=== PATIENT | female | born 1935 | race Caucasian/White ===

== ENCOUNTER 2016-08-10 08:41 | Inpatient (IN) | payer MEDICARE, OTHER ==
--- NOTE | 2016-09-13 11:24 | HP ---
DATE OF CLINIC: 09/02/2016 MARVEL DOSHI : 1935 PLANNED PROCEDURE: Left Total Knee Arthroplasty DATE OF SURGERY: September 14, 2016 SURGEON: Juan Ramon Chapman M.D. HISTORY OF PRESENT ILLNESS Marvel Doshi is an 81 year old female. * Medication list reviewed with patient allergy list reviewed with patient. * Tried Injections 08/2015-series of 6 injections 1 once a week. 01/2016 either a pure Lidocaine injection or a mixture with steroid * Has not tried NSAIDS Patient has been referred to our office for further evaluation of left knee pain and history of arthritis. She has recently relocated from [place] to [place]. She has been diagnosed previously with left knee arthritis and has received a 5 shot series of knee injection, which sounds like visco supplementation with little benefit. She also has had a previous left knee steroid injection which provided 2 months pain relief. She reports no previous knee injury. Her PCP is Dr. Shrestha. Patient denies having a casing flusher, but does have history of hypertension. After discussion and review of treatment options, including operative and non-operative, she has elected to proceed with left TKA and presents today preoperatively. CURRENT MEDICATION * Herrera Low Dose 81 MG Tablet Delayed Release 1 once a day 0 days, 0 refills * Blood Pressure Monitor Miscellaneous 1 once a day, 99 days, 0 refills * [facility] Ibuprofen 200 MG Tablet as needed PRN, 0 days, 0 refills * [facility] Omeprazole 20 MG Tablet Delayed Release 1 once a day 0 days, 0 refills * HydroCHLOROthiazide 25 MG Tablet 1 once a day, 30 days, 3 refills * Zostavax 25316 UNT/0.65ML Solution Reconstituted per pharmacy protocol, 30 days, 0 refills PAST MEDICAL/SURGICAL HISTORY Reported: No recent change in medical history. Medical: Bladder disease and Hypertension. Surgical / Procedural: Prior surgery Right eye Cataract 11/2015. Surgical: * Hysterectomy 1966 SOCIAL HISTORY Social history unchanged. Behavioral: Never smoked. Smoking status: Never smoker. Home Environment: Lives alone. Work: Occupation N/A. ALLERGIES * Codeine Derivatives Reaction: Nausea/Vomiting/Diarrhea * Macrodantin Reaction: Skin Rashes/Hives * Prevacid Reaction: Nausea/Vomiting/Diarrhea * Sulfa Drugs Reaction: Skin Rashes/Hives * TraMADol HCl Reaction: Nausea/Vomiting/Diarrhea FAMILY HISTORY 4 children living Family medical history Mother: Heart Disease, Stroke, Mother, HBP Father: Kidney Disease REVIEW OF SYSTEMS No recent constitutional symptoms to include fevers and chills. No cardiovascular symptoms to include chest pain or palpitations. No respiratory symptoms to include shortness of breath or recent infections. PHYSICAL FINDINGS * Vitals taken 09/02/2016 02:32 pm BP-Sitting L 121/70 mmHg BP Cuff Size Regular Pulse Rate-Sitting 74 bpm Temp-Oral 97.5 F Height 68 in Weight 217 lbs Body Mass Index 33.0 kg/m2 Body Surface Area 2.12 m2 Pain Level 4 Ears, Nose, Throat: * ENT: normal. Lungs: * Clear to auscultation. Cardiovascular: Heart Rate and Rhythm: * Normal. Abdomen: * Normal. Neurological: Motor: * Dominant Hand = Left Hand. Patient is alert and oriented and in no acute distress, ambulates in on her own without a knee brace or walking aid accompanied by her daughter. Left knee exam: Gross exam of bilateral knees shows signs of a valgus knee deformity. Patient has medial and lateral left knee joint tenderness, NT around the patellofemoral joint. Knee feels stable despite valgus deformity. Quadriceps and hamstring strength is 5/5, ankle dorsiflexion and plantarflexion strength is 5/5, hip strength is 5/5. Knee ROM is 0-120 degrees. No bruising, swelling or deformity. No erythema, increased warmth or sign of infection. TESTS * Test: URINALYSIS WITH MICROSCOPIC Report Date: 09/03/2016 EPITHELIAL CELL 1-2 WBC 10-15 GLUCOSE NEGATIVE BACTERIA 3+ PH,URINE 6.0 SPEC. GRAVITY 1.020 KETONE NEGATIVE NITRITE NEGATIVE RBC 0 BLOOD NEGATIVE BILIRUBIN NEGATIVE APPEARANCE CLOUDY PROTEIN NEGATIVE COLOR YELLOW LEUK ESTERASE TRACE UROBILINOGEN NORMAL * Test: URINE CULTURE Report Date: 09/04/2016 URINE CULTURE >100,000 CFU/ML MIXED AMOL, 3 OR MORE COLONY TYPES, * Test: CBC NO DIFF Report Date: 09/02/2016 WBC 5.5 10*3/mL MCV 96.2 fL RBC 4.47 10*6/uL MCH 31.5 pg High MCHC 32.8 g/dL Low RDW 14.3 % PLATELET COUNT 196 10*3/mL HCT 43.0 % HGB 14.1 g/L * Test: PROTHROMBIN TIME Report Date: 09/02/2016 PROTIME 9.4 s INR 0.90 * Test: PARTIAL THROMBOPLASTIN TIME Report Date: 09/02/2016 APTT 25.0 s * Test: COMPREHENSIVE METABOLIC PANEL Report Date: 09/02/2016 ALT/SGPT 6 U/L Low ALBUMIN 3.6 g/dL ALB/GLOB RATIO 1.4 BUN 21 mg/dL BUN/CREAT RATIO 19 CALCIUM 10.1 mg/dL GLUCOSE 98 mg/dL CREATININE 1.1 mg/dL SODIUM 140 meq/L POTASSIUM 3.7 meq/L CHLORIDE 99 meq/L CARBON DIOXIDE 35 meq/L High ANION GAP 10 meq/L TOT PROTEIN 6.2 g/dL Low GLOBULIN 2.6 g/dL BILI,TOTAL 0.3 mg/dL AST/SGOT 12 U/L Low ALK PHOSPHATASE 61 U/L GFR 47 Low * Test: URINALYSIS WITH MICROSCOPIC Report Date: 09/03/2016 EPITHELIAL CELL 1-2 WBC 10-15 GLUCOSE NEGATIVE BACTERIA 3+ PH,URINE 6.0 SPEC. GRAVITY 1.020 KETONE NEGATIVE NITRITE NEGATIVE RBC 0 BLOOD NEGATIVE BILIRUBIN NEGATIVE APPEARANCE CLOUDY PROTEIN NEGATIVE COLOR YELLOW LEUK ESTERASE TRACE UROBILINOGEN NORMAL * Test: MRSA SCREEN Report Date: 09/03/2016 MRSA SCREEN NEGATIVE * Test: MSSA SCREEN Report Date: 09/03/2016 MSSA SCREEN NEGATIVE FOR STAPHYLOCOCCUS AUREUS IMAGING Left knee x-rays from 05/03/16 show signs of lateral compartment [id number] contact with medial and lateral and patellofemoral arthritic changes, severe in nature. No sign of fracture or dislocation. Please see radiologic report for further details. ASSESSMENT * Localized primary osteoarthritis of the left knee Left knee osteoarthritis, severe, affecting primarily lateral compartment. THERAPY * Patient fall risk screen negative. * Patient eligible for fall risk assessment. * Patient received fall risk assessment. PLAN * Unilateral primary osteoarthritis, left knee Physical Therapy: PT Alisha Artis Instructions: Post-op Rehab Left TKA SX:09/14/06 needs to start wk of 09/19/16TBS [facility] [place] - if pt doesn't go to SNF OxyCONTIN 10 MG T12A, Take 1 tab by mouth every 12 hours for baseline pain control, 10 days, 0 refills OxyCODONE HCl 5 MG TABS, Take 1-2 tabs by mouth every 4 hours as needed for breakthrough pain, 14 days, 0 refills * Total knee arthroplasty -Left CARE TEAM Maru Shrestha MD Internal Medicine SURGICAL CONSENT We have discussed surgical options including left TKA and non-operative management. The patient was counseled in detail regarding the diagnosis, treatment options available, prognosis of each treatment option and the potential risks and complications. The risks of surgery include, but are not limited to, anesthetic , neurovascular complications, pulmonary embolism, deep vein thrombosis, wound dehiscence, failure of any or all of the discussed procedures, infection of the joint or surrounding soft tissue, need for revision surgery, chronic pain, limitations in activities of daily living, inability to return to work, and loss of normal range of motion or functional use of the extremity. There is the possibility of failure over time that may require additional operative or non-operative treatment. The patient acknowledged that there are a number of perioperative risks not mentioned here and would still like to proceed. The patient is aware of and understands these risks, and wishes to proceed with the proposed surgical procedure and other procedures as indicated at the time of surgery. We will have the patient see their PCP for a preoperative medical risk assessment. The preoperative instructions were reviewed with the patient and all questions were answered. PB/sg
[2016-09-14] MEDS ORDERED: FENTANYL 100 MCG/2 ML VIAL ONE (11:15)
[2016-09-14] MEDS ORDERED: PROPOFOL 20 ML IV ONE ×2 (11:15→15:02)
[2016-09-14] MEDS ORDERED: MIDAZOLAM HCL 5 MG/5 ML VIAL ONE (11:15)
[2016-09-14] MEDS ORDERED: FAMOTIDINE 20 MG TABLET PO ONE (11:45)
[2016-09-14] MEDS ORDERED: GABAPENTIN 600 MG TABLET PO ONE (11:45)
[2016-09-14] MEDS ORDERED: POLYMYXIN B SULFATE 500,000 UNITS, BACITRACIN 25,000 UNITS in SODIUM CHLORIDE 3 L IRRIG... IR PRN (11:45)
[2016-09-14] MEDS ORDERED: ONDANSETRON 4 MG/2ML 2 ML VIAL IV ONE (11:45)
[2016-09-14] MEDS ORDERED: BUPIVACAINE 0.25% (MDV) 24 ML, MORPHINE SULFATE 8 MG, EPINEPHRINE 0.3 MG in SODIUM CHLO... IF PRN (11:45)
[2016-09-14] MEDS ORDERED: CEFAZOLIN SODIUM 2 GRAM PREMIX 100 ML IV PRN (11:45)
[2016-09-14] MEDS ORDERED: TRANEXAMIC ACID 1,000 MG in SODIUM CHLORIDE 0.9% 100 ML IV PRN (11:45)
[2016-09-14] MEDS ORDERED: OXYCODONE HCL 10 MG TAB.SR PO ONE ×2 (11:45→12:44)
[2016-09-14] MEDS ORDERED: BUPIVACAINE 0.25% (MDV) 20 ML in SODIUM CHLORIDE 0.9% FLUSH 20 ML IF PRN (11:45)
[2016-09-14] MEDS ORDERED: CLONIDINE HCL 0.1 MG/24 HR (7 DAY PATCH) TD SCH (11:45)
[2016-09-14] MEDS ORDERED: CELECOXIB 200 MG CAPSULE PO ONE (11:45)
[2016-09-14] MEDS ORDERED: LACTATED RINGERS 1,000 ML ONE (11:59)
[2016-09-14] MEDS ORDERED: IV START KIT ONE (12:00)
[2016-09-14] MEDS ORDERED: CEFAZOLIN SODIUM 2 GRAM PREMIX 100 ML IV ONE (12:01)
[2016-09-14] MEDS ORDERED: FAMOTIDINE 20 MG TABLET ONE ×2 (12:43→13:00)
[2016-09-14] MEDS ORDERED: CLONIDINE HCL 0.1 MG/24 HR (7 DAY PATCH) TD ONE (12:43)
[2016-09-14] MEDS ORDERED: GABAPENTIN 600 MG TABLET ONE (12:43)
[2016-09-14] MEDS ORDERED: ONDANSETRON 4 MG/2ML 2 ML VIAL ONE (12:43)
[2016-09-14] MEDS ORDERED: CELECOXIB 200 MG CAPSULE ONE (12:44)
[2016-09-14] MEDS ORDERED: BUPIVACAINE 0.75% SPINAL AMPUL 2 ML ONE (12:52)
[2016-09-14] MEDS ORDERED: ROPIVACAINE 0.5% 30 ML VIAL ONE (12:52)
[2016-09-14] MEDS ORDERED: NERVE BLOCK PROCEDURAL TRAY 1 EACH ONE (12:52)
[2016-09-14] MEDS ORDERED: SPINAL PROCEDURAL TRAY 1 EACH ONE (12:52)
[2016-09-14] MEDS ORDERED: ON-Q PUMP/ROPIVACAINE 0.2% 450 ML ONE ×2 (14:28→16:26)
[2016-09-14] MEDS ORDERED: PROMETHAZINE HCL 25 MG/ML VIAL IM PRN (14:34)
[2016-09-14] MEDS ORDERED: HYDROMORPHONE HCL 1 MG/ML SYRINGE IV PRN (14:34)
[2016-09-14] MEDS ORDERED: ONDANSETRON 4 MG/2ML 2 ML VIAL IV PRN (14:34)
[2016-09-14] MEDS ORDERED: ON-Q PUMP/ROPIVACAINE 0.2% 450 ML in PREMIX BAG 1 EACH NB PRN (14:34)
[2016-09-14] MEDS ORDERED: FENTANYL 100 MCG/2 ML VIAL IV PRN (14:34)
[2016-09-14] MEDS ORDERED: LACTATED RINGERS 1,000 ML IV SCH (14:45)
--- NOTE | 2016-09-14 16:17 | PCMBPN ---
Brief Post Op Note: Date of Procedure: 09/14/16 Start Time: 1430 Preoperative Diagnosis: 1. left knee osteoarthritis Postoperative Diagnosis: 1. Same Procedure: left total knee arthroplasty Surgeon: Juan Ramon Chapman MD Assist: Manuel Lombardo PA-C Anesthesia: Henny Pike Findings: as above Condition: stable to PACU Complications: none IV Fluids: 1500 mLs of LR Urine Output: 150 mLs Estimated Blood Loss: 150 mLs Tourniquet Time: 22 min at 250 mm Hg Specimens: N/A Implants: Depuy Attune 7PS femur, 6RP tibia, 5mm insert, 35 mm anatomic patella Drains: none Juan Ramon Chapman MD
[2016-09-14] MEDS ORDERED: CALCIUM CARBONATE 500 MG TAB.CHEW PO PRN (17:19)
[2016-09-14] MEDS ORDERED: TRAZODONE HCL 50 MG TABLET PO PRN (17:19)
--- NOTE | 2016-09-14 17:32 | RAD ---
LEFT KNEE 2 VIEWS HISTORY: Status post total knee arthroplasty. Frontal and lateral radiographs of the left knee. COMPARISON: 05/03/2016 FINDINGS: POSTPROCEDURAL CHANGE: Status post left total knee arthroplasty. ALIGNMENT: Grossly anatomic. Correction of prior valgus angulation. FRACTURE: None identified. ADDITIONAL POSTPROCEDURAL FINDINGS: Soft tissue gas, surgical matthias, and overlying brace noted. IMPRESSION: Grossly unremarkable immediate post arthroplasty appearance of the left knee.
[2016-09-14 18:00] VITALS: BMI 31.9
[2016-09-14] MEDS ORDERED: PUMP TUBING ONE (18:52)
[2016-09-14] MEDS: ONDANSETRON 4 MG/2ML 2 ML VIAL IV PRN (18:58)
[2016-09-14] MEDS: D5 1/2NS with 20 mEq KCL 1,000 ML IV SCH (18:59)
[2016-09-14] MEDS: HYDROMORPHONE HCL 0.5 MG/0.5 ML SYRINGE IV PRN (19:37)
[2016-09-14] MEDS: ACETAMINOPHEN 500 MG TABLET PO SCH ×2 (20:12→23:17)
[2016-09-14] MEDS: ASCORBIC ACID 500 MG TABLET PO SCH (20:23)
[2016-09-14] MEDS: KETOROLAC TROMETHAMINE 30 MG/ML 1 ML VIAL IV PRN (20:23)
[2016-09-14] MEDS: DOCUSATE SODIUM 100 MG CAPSULE PO SCH (20:24)
[2016-09-14] MEDS: OXYCODONE HCL 10 MG TAB.SR PO SCH (20:24)
[2016-09-14] MEDS: HYDROCHLOROTHIAZIDE 25 MG TABLET PO SCH (21:45)
[2016-09-14] MEDS: CEFAZOLIN SODIUM 2 GRAM DUPLEX 2 G in Premix (D5W) 50 ml 1 EACH IV SCH (23:17)
[2016-09-15] MEDS: ONDANSETRON 4 MG/2ML 2 ML VIAL IV PRN ×3 (00:07→20:52)
[2016-09-15] MEDS: D5 1/2NS with 20 mEq KCL 1,000 ML IV SCH ×4 (03:09→18:28)
[2016-09-15 05:53] LABS: HEMATOCRIT 36.2 % (37.0-47.0); HEMOGLOBIN 11.7 gm/l (12.0-16.0); MEAN CELL VOLUME 98.4 fl (81.0-99.0); MEAN CORPUSCULAR HEMOGLOBIN 31.8 pg (27.0-31.0); MEAN CORPUSCULAR HGB CONC 32.3 g/dl (33.0-37.0); RED CELL DISTRIBUTION WIDTH 14.3 % (11.5-14.5)
[2016-09-15] MEDS: OXYCODONE HCL 5 MG TABLET PO PRN ×4 (06:15→22:05)
[2016-09-15] MEDS: CEFAZOLIN SODIUM 2 GRAM DUPLEX 2 G in Premix (D5W) 50 ml 1 EACH IV SCH (06:15)
[2016-09-15] MEDS: ACETAMINOPHEN 500 MG TABLET PO SCH ×4 (06:15→22:05)
[2016-09-15 06:16] LABS: CALCIUM 8.7 mg/dL (8.6-10.3)
--- NOTE | 2016-09-15 08:16 | PDOC43 ---
- Subjective Subjective: Reports Pain Tolerable, Denies Chest Pain, Denies Shortness of Breath - Objective Vital Signs Temperature 98.7 F 09/15/16 07:35 Pulse Rate 71 09/15/16 07:35 Respiratory Rate 16 09/15/16 07:35 Blood Pressure 111/42 09/15/16 07:35 O2 Saturation by Pulse Oximetry 99 09/15/16 07:35 Oxygen Delivery Method Room Air Oxygen Flow Rate 0 Laboratory 09/15/16 05:30 09/15/16 05:30 09/15/16 05:30 RBC 3.68 L MCH 31.8 H MCHC 32.3 L Estimated GFR 80 H Active Medication Orders Category Date Time Status Acetaminophen [Tylenol] Med 09/14/16 17:19 Active 1,000 mg PO Q6H Ascorbic Acid [Vitamin C] Med 09/14/16 21:00 Active 500 mg PO BID Aspirin (Enteric Coated) [Ecotrin] Med 09/15/16 09:00 Active 325 mg PO DAILY Bisacodyl [Dulcolax] Med 09/17/16 16:10 Active 10 mg [place] DAILY PRN Calcium Carbonate [Tums] Med 09/14/16 17:19 Active 1,000 - 2,000 mg PO Q2H PRN D5 1/2NS with 20 mEq KCL [D51/2NS with 20 mEq KCL] 1, Med 09/14/16 17:19 Active 000 ml IV 125 mls/hr Docusate Sodium [Colace] Med 09/14/16 21:00 Active 100 mg PO BID Hydrochlorothiazide Med 09/14/16 18:30 Active 25 mg PO DAILY Hydromorphone HCl [Dilaudid] Med 09/14/16 17:19 Active 0.5 mg IV Q1H PRN Hydroxyzine Pamoate [Vistaril] Med 09/14/16 17:19 Active 25 - 50 mg PO Q4H PRN Ketorolac Tromethamine [Toradol] Med 09/14/16 17:19 Active 15 mg IV Q6H PRN Magnesium Hydroxide [Milk of Magnesia] Med 09/15/16 16:10 Active 30 ml PO DAILY PRN Multivitamins [One-A-Day] Med 09/15/16 09:00 Active 1 tab PO DAILY On-Q Pump/Ropivacaine 0.2% 450 ml Med 09/14/16 14:34 Active Premix Bag [Premix Fluid] 1 each NB Q50H Ondansetron 4 mg/2ml Vial [Zofran] Med 09/14/16 17:19 Active 4 - 6 mg IV Q6H PRN Oxycodone HCl [Roxicodone] Med 09/14/16 17:19 Active 5 - 10 mg PO Q4H PRN Oxycodone Sr [Oxycontin] Med 09/14/16 21:00 Active 10 mg PO Q12HR Remove Patch Med 09/15/16 16:10 Once 1 each TD X1 ONE Sodium Chloride 0.9% Flush [Normal Saline 10ml Flush] Med 09/14/16 17:19 Active 10 - 50 ml IV PRN PRN Sodium Chloride 0.9% Flush [Normal Saline 10ml Flush] Med 09/15/16 01:00 Active 10 ml IV Q8HR Trazodone HCl [Desyrel] Med 09/14/16 17:19 Active 25 mg PO BEDTIME PRN Intake and Output 09/13/16 09/14/16 09/15/16 23:59 23:59 23:59 Intake Total 1600 1882 Output Total 350 800 Balance 1250 1082 General: Afebrile Lungs: Normal Air Movement Skin: Normal Color, Warm, Dry - Left Lower Extremity Incision: Dressing Clean/Dry/Intact, No Dressing Saturated Motor: Extensor Hallucis Longus: 4/5, Tibialis Anterior: 4/5, Gastrocnemius: 4/5 Gross Sensation to Light Touch: Present: Deep Peroneal Nerve, Superficial Peroneal Nerve - Problems (1) Status post total knee replacement, left Status: Acute - Additional Comments POD1 Left TKA. Doing well and denies nausea/vomiting. 1. Physical Therapy: WBAT with [facility]. 2. Pain Control: multimodal pain control as needed. 3. DVT Prophylaxis: ASA 325mg, mobilization. 4. Disposition: Plan for discharge home Monday. 5. Medical Issues: No new.
[2016-09-15] MEDS: MULTIVITAMINS 1 TAB TABLET PO SCH (09:34)
[2016-09-15] MEDS: ASPIRIN (ENTERIC COATED) 325 MG TABLET.EC PO SCH (09:34)
[2016-09-15] MEDS: HYDROCHLOROTHIAZIDE 25 MG TABLET PO SCH (09:35)
[2016-09-15] MEDS: DOCUSATE SODIUM 100 MG CAPSULE PO SCH ×2 (09:35→20:51)
[2016-09-15] MEDS: ASCORBIC ACID 500 MG TABLET PO SCH ×2 (09:35→20:51)
[2016-09-15] MEDS: OXYCODONE HCL 10 MG TAB.SR PO SCH ×2 (09:35→20:51)
[2016-09-15] MEDS: KETOROLAC TROMETHAMINE 30 MG/ML 1 ML VIAL IV PRN (11:24)
[2016-09-15] MEDS: HYDROMORPHONE HCL 0.5 MG/0.5 ML SYRINGE IV PRN ×2 (11:26→14:51)
[2016-09-15] MEDS ORDERED: REMOVE PATCH 1 EACH UNIT TD SCH (11:45)
[2016-09-15] MEDS: HYDROXYZINE PAMOATE 25 MG CAPSULE PO PRN ×3 (14:55→22:05)
[2016-09-15] MEDS ORDERED: SODIUM CHLORIDE 0.9% FLUSH 10 ML ONE (15:44)
[2016-09-15] MEDS ORDERED: IV START KIT ONE (15:44)
[2016-09-15] MEDS ORDERED: D5 1/2NS with 20 mEq KCL 1,000 ML IV SCH (15:45)
[2016-09-15] MEDS ORDERED: PROMETHAZINE HCL 6.25 MG in SODIUM CHLORIDE 0.9% 50 ML IV PRN (15:45)
[2016-09-15] MEDS ORDERED: MAGNESIUM HYDROXIDE 30 ML UDCUP PO PRN (16:10)
[2016-09-15] MEDS ORDERED: REMOVE PATCH 1 EACH UNIT TD ONE (16:10)
[2016-09-16] MEDS: ACETAMINOPHEN 500 MG TABLET PO SCH ×6 (00:15→22:36)
[2016-09-16] MEDS: D5 1/2NS with 20 mEq KCL 1,000 ML IV SCH ×3 (04:39→17:39)
[2016-09-16] MEDS: HYDROXYZINE PAMOATE 25 MG CAPSULE PO PRN ×3 (04:44→22:36)
[2016-09-16] MEDS: OXYCODONE HCL 5 MG TABLET PO PRN ×3 (04:44→19:29)
[2016-09-16 05:49] LABS: HEMATOCRIT 33.7 % (37.0-47.0); HEMOGLOBIN 10.9 gm/l (12.0-16.0)
[2016-09-16] MEDS: DOCUSATE SODIUM 100 MG CAPSULE PO SCH ×2 (08:18→20:52)
[2016-09-16] MEDS: HYDROCHLOROTHIAZIDE 25 MG TABLET PO SCH (08:18)
[2016-09-16] MEDS: ASPIRIN (ENTERIC COATED) 325 MG TABLET.EC PO SCH (08:18)
[2016-09-16] MEDS: ASCORBIC ACID 500 MG TABLET PO SCH ×2 (08:18→20:52)
[2016-09-16] MEDS: MULTIVITAMINS 1 TAB TABLET PO SCH (08:18)
[2016-09-16] MEDS: OXYCODONE HCL 10 MG TAB.SR PO SCH ×2 (08:18→20:52)
--- NOTE | 2016-09-16 13:55 | OP ---
Emily KUMAR : 1935 [id number] DATE OF SURGERY: September 14, 2016 PREOPERATIVE DIAGNOSIS: Left knee osteoarthritis. POSTOPERATIVE DIAGNOSIS: Left knee osteoarthritis. PROCEDURE PERFORMED: LEFT TOTAL KNEE ARTHROPLASTY. SURGEON: Juan Ramon Chapman M.D. LACQUER COATER: Narciso Lombardo P.A.-C. SPECIMENS: No material was sent to the laboratory. ESTIMATED BLOOD LOSS: 150 mL. INTRAVENOUS FLUIDS: 1500 mL of crystalloid. URINE OUTPUT: 150 mL. TOURNIQUET TIME: 22 minutes at 300 mmHg. IMPLANTS: DePuy Attune size 7 posterior stabilized femur, 6 rotating platform tibia, 5 mm insert and a 35 mm anatomic patella. DRAINS: No drains. INDICATIONS: This is a 81-year-old female with history and physical exam and radiographic findings consistent with left knee osteoarthritis. The patient has undergone a course of nonoperative measures without adequate relief of their symptoms. They desire definitive management in the form of a total knee arthroplasty. Risks, benefits and alternatives were discussed at length with the patient and they have elected to proceed. Preoperative clearances were performed and the patient was scheduled for surgery at the first available convenience. DESCRIPTION OF PROCEDURE: The patient was identified in the preoperative holding area where they were marked with indelible marker by the operating surgeon. The patient underwent ultrasound guided adductor canal block by the anesthesia provider. Patient was then taken to the operating room where they underwent a spinal anesthetic and was positioned supine on the operating room table. All bony prominences were padded and a well padded pre-calibrated nonsterile tourniquet was placed on the left upper thigh. Patient received perioperative antibiotics. The patient was prepped and draped in the usual sterile fashion for surgery. An operative time out was performed and confirmed by all members of the operative team. The leg was elevated and exsanguinated using an Esmarch bandage and the tourniquet was inflated at 300 mmHg. A standard anterior approach to the knee was utilized. Dissection was carried down to the fascia overlying the quadriceps and patellar tendons. A medial peripatellar arthrotomy was created. The infrapatellar and suprapatellar fat pads were excised along with medial and lateral menisci and the ACL and PCL. At this point the tourniquet was deflated. Retractors were placed to protect the collateral ligaments and the patella was slid laterally. The TruMatch guide for the femur was brought onto the field and pinned in place. This was exchanged for our distal femoral cut block. We confirmed our resection levels and then made the resection with an oscillating saw. The knee was hyperflexed and the Tarlow retractor was placed to deliver the tibia from under the femur. The TruMatch guide for the tibia was placed. Alignment was double checked with a set of drop rods. The guide was pinned in place and then exchanged for the proximal tibial cut guide. The resection level was again confirmed and the proximal tibial resection was made with an oscillating saw and completed with an osteotome and the proximal tibial resection piece was excised from the knee. At this point the retractors were removed and the knee was taken into extension and our extension block was checked and found to be satisfactory with a 5 mm leighton. We returned our attention to the femur, pinning the 4-in-[address] using the previously drilled pins from the TruMatch guide. We double checked our alignment here as well as our flexion space and we were satisfied with the position of the block. Anterior, posterior and chamfer cuts were made and all bony pieces were excised. The knee was taken into hyperflexion and posterior osteophytes were removed using an osteotome and a curette. Finally, the tibia was sized with a base plate, drilled and punched and then a trial tibia was placed. The box cut guide for the femur was pinned in place and our box cut for the posterior stabilized femoral component was made and then a trial femur was placed. The trial 6 mm insert was placed and the knee was taken through a range of motion. It was found to be stable in all planes and to have appropriate extension and flexion. The patella was everted and held with two towel clips. Its thickness was measured to 24 mm initially. It was resected back using a freehand technique to 13 mm thick and sized for a 35 mm patellar button. The peg holes were drilled and a trial patella was placed. The knee was taken through a range of motion. The patella was found to track midline with a no hands technique. At this point all trial implants were removed from the knee. The posterior capsule was inspected and it was confirmed that there were no significant bleeders. Then knee was elevated and exsanguinated using an Esmarch bandage and the tourniquet was reinflated. Cement was mixed on the back table while we performed our first posterior capsular injection and then copiously irrigated the bony surfaces with sterile saline. Our final implants were cemented in place and all excess cement was removed from the knee. The knee was held in extension with a clamp on the patella while the cement dried. A final inspection was made of the knee after the cement was dry and the tourniquet was deflated. There were no significant bleeders and no residual cement or bony bodies within the knee. The knee was once again copiously irrigated with sterile saline and then a closure was performed using #0 Quill for the capsule, #2-0 Vicryl for the subcutaneous tissues and matthias in the skin. A sterile dressing of Xeroform, fluffs, ABD's, web roll and an CRISTINA bandage was applied. The drapes were removed. The patient was awakened from anesthesia. Patient was then transferred to a stretcher and taken postoperatively to the post anesthesia care unit in stable condition. There were no observed intraoperative complications during this procedure. Job [id number] Cc: Delhimarcus Childs
[2016-09-17] MEDS: D5 1/2NS with 20 mEq KCL 1,000 ML IV SCH (01:27)
[2016-09-17] MEDS: OXYCODONE HCL 5 MG TABLET PO PRN ×3 (01:29→12:12)
[2016-09-17] MEDS: ACETAMINOPHEN 500 MG TABLET PO SCH ×2 (05:25→07:21)
[2016-09-17 06:12] LABS: HEMATOCRIT 31.4 % (37.0-47.0); HEMOGLOBIN 10.4 gm/l (12.0-16.0)
--- NOTE | 2016-09-17 07:18 | PDOC43 ---
- Subjective Findings: Doing well, pain controlled, nausea resolved. Subjective: Reports Flatus, Reports Pain Tolerable, Denies Chest Pain, Denies Shortness of Breath, Denies Nausea, Denies Vomiting, Denies Fever - Objective Vital Signs Temperature 98.4 F 09/17/16 04:14 Pulse Rate 86 09/17/16 04:14 Respiratory Rate 18 09/17/16 04:14 Blood Pressure 144/94 09/17/16 04:14 O2 Saturation by Pulse Oximetry 94 09/17/16 04:14 Oxygen Delivery Method Room Air Oxygen Flow Rate 0 Laboratory 09/17/16 05:30 09/15/16 05:30 Active Medication Orders Category Date Time Status Acetaminophen [Tylenol] Med 09/14/16 17:19 Active 1,000 mg PO Q6H Ascorbic Acid [Vitamin C] Med 09/14/16 21:00 Active 500 mg PO BID Aspirin (Enteric Coated) [Ecotrin] Med 09/15/16 09:00 Active 325 mg PO DAILY Bisacodyl [Dulcolax] Med 09/17/16 16:10 Active 10 mg [place] DAILY PRN Calcium Carbonate [Tums] Med 09/14/16 17:19 Active 1,000 - 2,000 mg PO Q2H PRN D5 1/2NS with 20 mEq KCL [D51/2NS with 20 mEq KCL] 1, Med 09/14/16 17:19 Active 000 ml IV 125 mls/hr Docusate Sodium [Colace] Med 09/14/16 21:00 Active 100 mg PO BID Hydrochlorothiazide Med 09/14/16 18:30 Active 25 mg PO DAILY Hydromorphone HCl [Dilaudid] Med 09/14/16 17:19 Active 0.5 mg IV Q1H PRN Hydroxyzine Pamoate [Vistaril] Med 09/14/16 17:19 Active 25 - 50 mg PO Q4H PRN Magnesium Hydroxide [Milk of Magnesia] Med 09/15/16 16:10 Active 30 ml PO DAILY PRN Multivitamins [One-A-Day] Med 09/15/16 09:00 Active 1 tab PO DAILY Ondansetron 4 mg/2ml Vial [Zofran] Med 09/14/16 17:19 Active 4 - 6 mg IV Q6H PRN Oxycodone HCl [Roxicodone] Med 09/14/16 17:19 Active 5 - 10 mg PO Q4H PRN Oxycodone Sr [Oxycontin] Med 09/14/16 21:00 Active 10 mg PO Q12HR Promethazine HCl [Phenergan] 6.25 mg Med 09/15/16 15:45 Active Sodium Chloride 0.9% 50 ml IV Q4H Sodium Chloride 0.9% Flush [Normal Saline 10ml Flush] Med 09/14/16 17:19 Active 10 - 50 ml IV PRN PRN Sodium Chloride 0.9% Flush [Normal Saline 10ml Flush] Med 09/15/16 01:00 Active 10 ml IV Q8HR Trazodone HCl [Desyrel] Med 09/14/16 17:19 Active 25 mg PO BEDTIME PRN Intake and Output 09/15/16 09/16/16 09/17/16 23:59 23:59 23:59 Intake Total 2382 3098 200 Output Total 1375 550 310 Balance 1007 2548 -110 General: Afebrile, No Acute Distress HEENT: EOMI Lungs: Normal Air Movement Abdomen: Soft Skin: Normal Color, Warm, Dry Neurological: Grossly Intact, Alert, Oriented x 4, Normal Speech Psych/Mental Status: Normal Affect, Normal Mood - Left Lower Extremity Incision: Dressing Clean/Dry/Intact, Well Approximated, Michael Intact, No Drainage, No Erythema, No Rash, No Ecchymosis Motor: Extensor Hallucis Longus: 5/5, Tibialis Anterior: 5/5, Gastrocnemius: 5/5 , Peroneals: 5/5, Quadriceps: 5/5 Gross Sensation to Light Touch: Present: Deep Peroneal Nerve, Superficial Peroneal Nerve, Medial Plantar Nerve, Lateral Plantar Nerve, Sural Nerve, Saphenous Nerve Capillary Refill: < 3 Seconds Motion: 0-85 - Problems (1) Status post total knee replacement, left Status: Acute - Additional Comments POD3 Left TKA. Doing well and denies nausea/vomiting. 1. Physical Therapy: WBAT with FWW. 2. Pain Control: multimodal pain control as needed. 3. DVT Prophylaxis: ASA 325mg, mobilization. 4. Disposition: To SNF today for ongoing rehab. 5. Medical Issues: No new issues. Juan Ramon Chapman MD
--- NOTE | 2016-09-17 07:21 | PDOC5 ---
ADMIT DATE: 09/14/16 DISCHARGE DATE: 09/17/16 ADMISSION DIAGNOSES: left knee osteoarthritis PROCEDURES PERFORMED THIS HOSPITALIZATION: left total knee arthroplasty SURGEON:Juan Ramon Chapman MD CONSULTATIONS: PT/OT/Care Mgmt BRIEF HISTORY:This is a 81 year old female patient with activity-limiting left knee ostearthritis which has failed to respond adequately to a course of nonoperative measures. After a discussion of the risks, benefits, and alternatives of ongoing therapies, patient elected to proceed with left total knee arthroplasty. The patient underwent standard preoperative clearance and education, and presented to the hospital on the scheduled date for surgery. BRIEF HOSPITAL COURSE: Patient tolerated the procedure without complication and was admitted postoperatively for observation, pain control, and rehabilitation. Patient had an uncomplicated hospital course; see daily notes for details. On POD#3 patient met all criteria for discharge and was discharged home with family assistance. Follow-up appointments for outpatient Physical Therapy and Orthopedics were provided at the time of discharge. Patient restarted preoperative medications, and received prescriptions for postoperative pain medications, a stool softener, and DVT prophylaxis. Juan Ramon Chapman MD - Discharge Diagnosis (1) Status post total knee replacement, left Status: Acute - Discharge Plan Additional Instructions: PROCEDURE: Left total knee arthroplasty (replacement) 1.) Dressings: may remove dressings on POD#4 and shower normally, let water run over incision and pat dry, but do not submerge or scrub incision. Cover with clean dressing and then change dressing every 2 days until completely dry. 2.) Activity: may bear weight as tolerated with assistive device as needed. Outpatient PT as previously scheduled. Daily exercises as instructed by PT. 3.) Medications: a.) Oxycontin: long-acting pain medication taken morning and evening for 10 days, no refills b.) Oxycodone: as-needed pain medication for severe breakthrough pain (call for refills 3-4 days before running out) c.) Aspirin: blood thinner to reduce risk of clots, 325 mg taken daily for 30 days d.) Colace: stool softener to help prevent constipation, taken twice a day as long as you are on narcotics; if you have not had a bowel movement by Monday , get [id number] Magnesium Citrate from [employer] or [employer], and use per instructions twice a day until constipation resolves. 4.) Followup: September 26 at 1:00 PM with my PA, Manuel Lombardo at [facility]. Call our office to confirm appt time and location. 5.) Questions: call my office with any questions or concerns. Go to ED or call 911 for any acute changes in health status or emergencies. Juan Ramon Chapman MD Prescriptions: Oxycodone Sr [OXYCONTIN 10 MG SR TABLET (SHF)] 10 mg PO Q12HR #20 Promethazine HCl [Phenergan] 25 mg PO Q8H PRN #30 tab PRN Reason: Nausea Oxycodone HCl [ROXICODONE 5 MG IR TABLET (SHF)] 5 - 10 mg PO Q4H PRN #80 PRN Reason: Pain (Moderate) Ondansetron ODT [Zofran Odt] 4 mg PO Q4-6H PRN #20 tab.rapdis PRN Reason: Nausea/Vomiting Follow-Up: Narciso Lombardo PA [Physician Behaviorist] - 09/26/16 1:00 pm
[2016-09-17 07:45] VITALS: BP 129/55
[2016-09-17] MEDS: HYDROCHLOROTHIAZIDE 25 MG TABLET PO SCH (08:21)
[2016-09-17] MEDS: DOCUSATE SODIUM 100 MG CAPSULE PO SCH (08:22)
[2016-09-17] MEDS: OXYCODONE HCL 10 MG TAB.SR PO SCH (08:22)
[2016-09-17] MEDS: ASCORBIC ACID 500 MG TABLET PO SCH (08:22)
[2016-09-17] MEDS: ASPIRIN (ENTERIC COATED) 325 MG TABLET.EC PO SCH (08:22)
[2016-09-17] MEDS: MULTIVITAMINS 1 TAB TABLET PO SCH (08:22)
[2016-09-17] MEDS ORDERED: BLISTEX LIPSTICK 1 EACH TP ONE (08:26)
[2016-09-17] MEDS ORDERED: BLISTEX LIPSTICK 1 EACH TP PRN (08:28)
[2016-09-17] MEDS ORDERED: BISACODYL 10 MG SUP PR PRN (16:10)
== END 2016-09-17 13:28 | DRG 470 ==
LOC: OR 09-14 11:58 → MS 09-14 17:42
PROVIDERS: ADMIT Orthopaedic Surgery; ATTEND Orthopaedic Surgery
PROC: 0SRD0J9 Replacement of Left Knee Joint with Synthetic Substitute, Cemented, Open Approach (ICD-10-PCS; principal; 2016-09-14)
DX: M17.12 Unilateral primary osteoarthritis, left knee (principal)